=== PATIENT | male | born 1940 | race Caucasian/White ===

== ENCOUNTER → 2017-06-02 | Outpatient (CLI) | payer MEDICARE, OTHER ==
[~2017-06-02] MED LIST: ALEVE; ONE DAILY1 TA1 PO
== END ==
LOC: COL.RAD 07:30
DX: Z13.6 Encounter for screening for cardiovascular disorders (principal)

== ENCOUNTER 2020-12-22 13:26 | Emergency (ER) | payer MEDICARE, OTHER ==
[~2020-12-22] VITALS: Ht 182.9 cm; Wt 77.3 kg
[2020-12-22 13:30] VITALS: TEMP 97
[2020-12-22 14:26] LABS: BASO % 0.4 % (0.0-2.0); EOS # 0.2 K/mm3 (0.0-0.7); EOS % 2.2 % (0-4.0); GRAN # 4.9 K/mm3 (1.4-6.5); GRAN % 71.3 % (42.2-75.2); HEMATOCRIT 38.9 % (42.0-52.0); HEMOGLOBIN 13.4 g/dl (13.5-18.0); LYMPH # 1.3 K/mm3 (1.2-3.4); MEAN CELL VOLUME 95 fl (80.0-100.0); MEAN CORPUSCULAR HEMOGLOBIN 33 pg (27.0-31.0); MEAN CORPUSCULAR HGB CONC 34 g/dl (33.0-37.0); MEAN PLATELET VOLUME 10.2 fl (7.4-10.4); MONO # 0.5 K/mm3 (0.1-0.6); MONO % 6.8 % (1.7-9.3); PLATELET COUNT 209 K/mm3 (130-400); REDCELL DISTRIBUTION WIDTH-CV 12.7 % (11.5-14.5)
[2020-12-22 14:34] LABS: ALBUMIN 3.6 gm/dL (3.4-4.8); BILIRUBIN,TOTAL 0.6 mg/dL (0.2-1.2); CALCIUM 9.1 mg/dL (8.4-10.2); CREATININE, serum 1.18 mg/dL (0.72-1.25); POTASSIUM 4.1 mmol/L (3.5-4.5); TOTAL PROTEIN 5.8 gm/dL (6.2-8.1)
[2020-12-22] MEDS ORDERED: EPIPEN 2-PAK1 MG/ML IM (15:04)
[2020-12-22 15:20] VITALS: BP 108/61; PULSE 73
== END 2020-12-22 15:20 | disposition home or self-care (01) ==
LOC: COL.ER 13:26
PROVIDERS: Personal Emergency Response Attendant
DX: T78.1XXA Other adverse food reactions, not elsewhere classified, initial encounter (principal); R55 Syncope and collapse
CPT/HCPCS: J1100

== ENCOUNTER 2023-08-17 20:31 | Emergency (ER) | payer MEDICARE ==
[~2023-08-17] VITALS: Ht 165.1 cm; Wt 75.9 kg
[~2023-08-17 20:31] MED LIST changes: +EPIPEN 2-PAK1 MG/ML IM
[2023-08-17] MEDS ORDERED: diphenhydrAMINE 50 MG/ML 1 ML VIAL IV ONE (21:15)
[2023-08-17] MEDS ORDERED: methylPREDNISolone Sod Succ 125 MG/2 ML VIAL IV ONE (21:15)
[2023-08-17] MEDS ORDERED: NS 500 ML IV ONE (21:15)
[2023-08-17 22:44] VITALS: BP 130/72; PULSE 75; TEMP 97
== END 2023-08-17 22:44 | disposition home or self-care (01) ==
LOC: COL.ER 20:31
DX: T78.40XA Allergy, unspecified, initial encounter (principal); X58.XXXA Exposure to other specified factors, initial encounter
CPT/HCPCS: J1200; J2919; J7040